=== PATIENT | female | born 1985 | race Caucasian/White ===

== ENCOUNTER 2017-03-01 07:55 | Emergency (ER) | payer OTHER ==
[~2017-03-01] VITALS: Ht 167.6 cm; Wt 77.1 kg
[2017-03-01 07:57] VITALS: BP 119/78
[2017-03-01] MEDS ORDERED: predniSONE 20 MG TABLET ONE (08:13)
[2017-03-01] MEDS ORDERED: predniSONE 20 MG TABLET PO ONE (08:30)
== END 2017-03-01 08:22 | disposition home or self-care (01) ==
LOC: ER 07:59
DX: T63.481A Toxic effect of venom of other arthropod, accidental (unintentional), initial encounter (principal); H05.012 Cellulitis of left orbit; H01.004 Unspecified blepharitis left upper eyelid; H01.005 Unspecified blepharitis left lower eyelid; E03.9 Hypothyroidism, unspecified; Y92.89 Other specified places as the place of occurrence of the external cause
CPT/HCPCS: A4606; A6402; Z7610

== ENCOUNTER 2019-04-15 10:56 | Emergency (ER) | payer OTHER ==
[~2019-04-15] VITALS: Ht 170.2 cm; Wt 81.6 kg
[2019-04-15 11:02] VITALS: BP 138/81
[2019-04-15] MEDS ORDERED: IBUPROFEN 400 MG TABLET ONE (11:17)
[2019-04-15] MEDS: IBUPROFEN 400 MG TABLET PO ONE (11:21)
== END 2019-04-15 11:50 | disposition home or self-care (01) ==
LOC: ER 11:00
DX: J02.9 Acute pharyngitis, unspecified (principal); E03.9 Hypothyroidism, unspecified
CPT/HCPCS: 86403-TC; 87070-TC